=== PATIENT | male | born 1985 | race Caucasian/White ===

== ENCOUNTER → 2017-10-22 | Outpatient (CLI) | payer BC ==
--- NOTE | ~2017-10-22 | O ---
[facility] [place] [address] OPERATIVE REPORT Name: CONNER MIRZA Room #: REG [facility] Rian.#: [id number] Admission: 10/22/17 Attend Phys: Alexey Yanes MD, Discharge: Date of : 85 Report #: [id number] THIS REPORT FOR: //name// CC: Alexey Yanes DATE OF SERVICE: 10/22/2017 PREOPERATIVE DIAGNOSES: 1. Dysphagia with a history of a laparoscopic band placement. 2. Morbid obesity with a body mass index of 58.92. 3. Gastroesophageal reflux disease. 4. Chronic low back pain. 5. Chronic fatigue. POSTOPERATIVE DIAGNOSES: 1. Dysphagia with a history of a laparoscopic band placement. 2. Morbid obesity with a body mass index of 58.92. 3. Gastroesophageal reflux disease. 4. Chronic low back pain. 5. Chronic fatigue. 6. Malpositioned and slipping lap band. PROCEDURE PERFORMED: Thorough esophagogastroduodenoscopy (EGD). SURGEON: Alexey Yanes M.D. SENIOR UNIX ADMINISTRATOR: None. ANESTHESIA: Monitored anesthesia care. ESTIMATED BLOOD LOSS: None. COMPLICATIONS: None. SPECIMENS: None. INDICATIONS: The patient is a 32-year-old morbidly obese male who presented with increasing issues with dysphagia and medically recalcitrant reflux disease who has a history of lap band placement several years ago and has had inadequate weight loss from that procedure. As the patient's dysphagia is worsening as of late, he requires a lap band removal with conversion to a laparoscopic sleeve gastrectomy for both resolution of his dysphagia as well as assistance with weight loss. Indication today was for preoperative EGD to evaluate the lap band further to ensure no erosion. DESCRIPTION OF PROCEDURE: After explaining the risks, benefits and alternatives [facility] [address] [place] [address] OPERATIVE REPORT Name: CONNER MIRZA Room #: REG [facility] Rian.#: [id number] Admission: 10/22/17 Attend Phys: Alexey Yanes MD, Discharge: Date of : 85 Report #: [id number] of the procedure with the patient in detail and obtaining consent, the patient was brought to the endoscopy suite and placed supine on his hospital bed. After conducting a thorough timeout procedure verifying correct patient and procedure, the patient was placed in left lateral decubitus position and was given monitored anesthesia care. Once adequate anesthesia was obtained, the Whyteboardn upper endoscope was used to intubate the oropharynx and was traversed down into the gastric lumen. The pylorus was identified and intubated. The scope was advanced to the second portion of the duodenum. Slow and careful withdrawal of the EGD scope showed no evidence of duodenitis, gastritis, esophagitis, mass lesions or ulcerations. A retroflexion view of the scope within the gastric lumen showed the lap band extrinsic compression, which appeared to be right at the level of the gastroesophageal juncture. Allowing the patient to lighten slightly from anesthesia with repeated abdominal contractions showed significant craniocaudal mobility of the extrinsic compression, all consistent with not only a malpositioned lap band residing too cephalad but also intermittent slippage. The scope was straightened out until it was in the gastric lumen and fully decompressed and the scope was removed and passed off the field completing the procedure. At the end of the procedure, all instrument, needle and sponge counts were correct. The patient tolerated the procedure without incident, was awakened in the endoscopy room and transitioned to the recovery room in stable condition with no apparent complications. <ELECTRONICALLY SIGNED> By: Alexey Yanes MD, FACS 10/23/17 1013 [id number] Alexey Yanes MD, FACS /nt
== END | disposition home or self-care (01) ==
LOC: GI 12:22
DX: K21.9 Gastro-esophageal reflux disease without esophagitis (principal); E66.01 Morbid (severe) obesity due to excess calories; G89.29 Other chronic pain; M54.5 Low back pain; R53.82 Chronic fatigue, unspecified; K95.09 Other complications of gastric band procedure; Z68.43 Body mass index [BMI] 50.0-59.9, adult
CPT/HCPCS: 62110; 62900

== ENCOUNTER → 2018-01-07 | Outpatient (CLI) | payer BC ==
--- NOTE | ~2018-01-07 | EKG ---
[place] [address] [employer] [place] [address] ELECTROCARDIOGRAM REPORT Name: CONNER FRANKS Room #: REG [facility]#: [id number] Admission: 01/07/18 Attend Phys: Alexey Yanes MD, Discharge: Date of : 85 Report #: [id number] THIS REPORT FOR: //name// [facility] Test Date: 2018-01-07 Test Time: 14:16:55 Pat Name: CONNER FRANKS Department: Room: Gender: M Estimation Manager: Nikkie DIALLO : 1985 Requested By: Alexey Yanes Order Number: [id number] MD: Gage Doyle Measurements Intervals [place]stein Rate: 83 P: 16 DE: 135 QRS: 12 QRSD: 95 T: 13 QT: 367 QTc: 432 Interpretive Statements Sinus rhythm Small inferior Q waves No previous ECG available for comparison Electronically Signed On 01-07-2018 19:29:23 CDT by Gage Doyle [email or web address] <ELECTRONICALLY SIGNED> By: Gage Doyle MD, [facility] 01/07/18 1929 1416 1416 Gage Doyle MD, FACC /EPI
[2018-01-07 13:45] LABS: ABSOLUTE NEUTROPHILS 4.2 thou/uL (1.4-8.2); BASOPHILS 1.2 % (0.0-2.0); EOSINOPHILS 1.5 % (0.0-3.0); HEMATOCRIT 44.5 % (42.0-52.0); HEMOGLOBIN 15.4 gm/dL (14.0-18.0); LYMPHOCYTES 31.7 % (24.0-44.0); MCH 30.6 pg (26.0-34.0); MCHC 34.6 g/dL (28.0-37.0); MCV 88.2 fL (80.0-100.0); MONOCYTES 10.1 % (1.0-8.0); PLATELET COUNT 390 thou/uL (150-400); POLYS 55.5 % (36.0-66.0); RBC 5.04 mil/uL (4.50-6.00); RDW 13.6 % (10.5-14.5); WBC 7.5 thou/uL (4.0-11.0)
== END ==
LOC: CV 13:18
PROVIDERS: Surgery
DX: Z01.818 Encounter for other preprocedural examination (principal)